=== PATIENT | female | born 1980 | race Two or more races ===

== ENCOUNTER 2019-06-26 09:30 | Outpatient (AMBR) | payer MEDICAID, SELFPAY ==
--- NOTE | 2019-06-17 13:18 | PTNOTE_ITS ---
PT OP Initial Eval Patient Information Visit Reasons: RIGHT FOOT Medical Diagnosis: M25.579 Treatment Dx #1: Right Foot Pain Start of Care: 06/17/19 Initial Assessment Subjective Pt is a 38 y/o female c/o chronic right foot pain after her tarsal tunnel syndrome surgery since 2018. Pt's foot pain is 9/10 with all activities. Pt has limitation with walking, self care, chores, cooking, cleaning, uneven surface, and recreational activities. Objective Right Ankle AROM: all motions are WFL Right Ankle MMTs DF: 4-/5 PF: 4-/5 Invertors: 3/5 Evertors: 3/5 Right Hip MMTs Glute Med: 3/5 Glute Max: 3/5 Right Hip PROM: all motions are WNL Palpation: hypomobile talocrural joint Assessment Pt demonstrate right foot pain with weakness leading to decline function and difficulty with ADLs. Pt will attempt physical therapy if pain persist Pt will be refer back to PCP Short Term and Group Home Goals 1) Decrease right foot pain to 3/10 in 6 wks to be able to walk more than 1 hr 2) Increase right ankle MMTs grossly to 4/5 in 6 wks to be able to perform chores 3) Increase right hip MMTs to 4-/5 in 6 wks to be able to perform self care activities 4) Indep with HEP Treatment Plan 1) Manual Therapy 2) Therapeutic Activities 3) Therapeutic Exercises 4) Modalities (ice, heat) 5) Balance Training 6) Gait Training Frequency and Duration 2 x wk for 6 wks Certification Dates: 06/17/19 to 09/17/19 Office Procedures PT Procedures PT Date of Service: 06/17/19 OP PT Eval Mod Complex 30 minutes: Yes
--- NOTE | 2019-06-24 14:34 | PT.ODAYNRPT ---
PT Outpatient Daily Note Date of Service: June 24, 2019 OP Daily Note Visit Reasons: RIGHT FOOT Outpatient Physical Therapy Treatment Date: 06/24/19 Subjective: Pt's foot this hurt. Pt has difficulty with walking due to pain Objective: Please see flow chart for list of ther ex performed Assessment: difficulty with all exercises throughout PT session due to pain. Pt able to complete all exercises and rep but antalgic gait after she left therapy session Plan: Continue with PT Length of Time (minutes) of Treatment: 30 Minutes Office Procedures PT Procedures PT Date of Service: 06/17/19 OP PT Eval Mod Complex 30 minutes: Yes PT Procedures PT Date of Service: 06/24/19 Therapeutic Exercise 30 minutes: Yes
--- NOTE | 2019-06-26 11:02 | PT.ODAYNRPT ---
PT Outpatient Daily Note Date of Service: June 26, 2019 OP Daily Note Visit Reasons: RIGHT FOOT Outpatient Physical Therapy Treatment Date: 06/26/19 Subjective: Pt's foot hurting more with PT. Pt stated that she had difficulty with walking after last treatment session Objective: Please see flow chart for list of ther ex performed Assessment: modified exercises to more open chain v.s. to closed chain. Pt still had pain; recommend but refused Plan: Continue with PT Length of Time (minutes) of Treatment: 30 Minutes Office Procedures PT Procedures PT Date of Service: 06/17/19 OP PT Eval Mod Complex 30 minutes: Yes PT Procedures PT Date of Service: 06/24/19 Therapeutic Exercise 30 minutes: Yes PT Procedures PT Date of Service: 06/26/19 Therapeutic Exercise 30 minutes: Yes
== END 2019-06-26 23:59 | disposition home or self-care (01) ==
PROVIDERS: PCP Physician Assistant; Referring Provider Physician Assistant; Visit Provider Physician Assistant
DX: M79.672 Pain in left foot (principal); M79.671 Pain in right foot; G89.29 Other chronic pain; R26.2 Difficulty in walking, not elsewhere classified; R53.1 Weakness
CPT/HCPCS: 97110; 97162

== ENCOUNTER → 2025-02-25 | Outpatient (CLI) | payer MEDICAID, SELFPAY ==
--- NOTE | 2025-02-25 08:30 | XR_ITS ---
Examination: Screening digital mammography, bilateral Computer aided detection 3-D breast Tomosynthesis, bilateral Date and time of exam: February 25, 2025 0807 hours Compared to mammograms dating to March 06, 2018 Indication: Screening Technique: Nonmagnified MLO, CC views of the breasts to been obtained, reconstructed from 3-D Tomosynthesis images. R2 computer aided detection program utilized for evaluation of suspicious masses and/or abnormal calcifications. 3-D Tomosynthesis images obtained. Findings: Scattered areas of fibroid rather density. Benign calcifications. No interval suspicious masses Impression: BI-RADS category II: Benign Findings. Recommend 1 year follow-up mammogram.
== END | disposition home or self-care (01) ==
PROVIDERS: PCP Physician Assistant; Referring Provider Physician Assistant; Visit Provider Physician Assistant
DX: Z12.31 Encounter for screening mammogram for malignant neoplasm of breast (principal); R92.323 Mammographic fibroglandular density, bilateral breasts; R92.1 Mammographic calcification found on diagnostic imaging of breast
CPT/HCPCS: 77063; 77067

== ENCOUNTER 2025-08-18 09:22 | Outpatient (RCR) | payer MEDICAID, SELFPAY ==
--- NOTE | 2025-08-18 09:44 | PTNOTE_ITS ---
PT OP Initial Eval Patient Information Outpatient Physical Therapy Treatment Date: 08/18/25 Visit Reasons: CERVICALGIA Medical Diagnosis: Neck Pain Treatment Dx #1: Neck Pain Start of Care: 08/18/25 Date of Onset: Mar 2025 Smoking Status Smoking Status: Current every day smoker Cessation Counseling Provided: ALEXANDRO was advised that quitting smoking is the single most important factor to protect the health of themselves and their family. Discussed the benefits of quitting smoking with patient. Encouraged patient to quit smoking and provided Cessation assistance materials and resources. Tobacco Use: Cigarette Years smoked: 10 Are you interested in quitting?: No Would you like additional Smoking Cessation Counseling?: No Initial Assessment Subjective: Pt is a 44 y/o female reports of neck pain (03/05) since Mar 2025. No numbness or tingling down the arms. Pt also denies of injury or trauma to the neck. No MRI has been done thus far. Pt has limitation with turning the head, chores, self care, cooking, cleaning, and performing recreational activities. Objective: C/S AROM: all motions are WFL with end range pain in all plane BUE AROM: all motions are WFL BUE MMTs: grossly 3+/5 Palpation: TTP and hypomobile c3-c4 facets; TTP upper trape and levator scapulae DNF Endance Test: 4 sec Assessment: Pt demonstrate neck pain with mobility deficits leading to difficulty with ADLs. Pt will benefit from physical therapy to increase ROM, strength, and work on flexibility Short Term and Industrial [employer] Goals 1) Increase C/S AROM WNL in [address] be able to drive 2) Decrease neck pain to 2/10 in 6 wks to be able to perform chores 3) Increase DNF endurance test to 15 sec in 6 wks to be able perform self care activities with less pain 4) Increase BUE AROM WNL in 6 wks to be able to perform overhead motions 5) Indep with HEP Treatment Plan 1) Manual Therapy 2) Therapeutic Activities 3) Therapeutic Exercises 4) Modalities (ice, heat, traction) Frequency and Duration: 2 x wk for 6 wks Certification Dates: 08/18/25 to 11/16/25 Procedure Charges OP PT Eval Mod Complex 30 minutes: Yes
== END 2025-08-26 23:59 | disposition home or self-care (01) ==
LOC: CPTX 09:22
PROVIDERS: PCP Physician Assistant; Referring Provider Physician Assistant; Visit Provider Physician Assistant
DX: M54.2 Cervicalgia (principal); Z71.6 Tobacco abuse counseling; F17.210 Nicotine dependence, cigarettes, uncomplicated
CPT/HCPCS: 97162